=== PATIENT | male | born 1955 | race Caucasian/White ===

== ENCOUNTER 2018-06-12 11:30 | Outpatient (CLI) | payer BC ==
[2018-06-12 12:32] LABS: Mean Corpuscular HGB CONC 33.1 g/dL (32.0-36.0); Mean Corpuscular Hemoglobin 29.6 pg (27.0-31.0); Mean Corpuscular Volume 89.4 fL (78.0-98.0); Mean Platelet Volume 7.2 fL (7.4-10.4); Platelet Count 211 thou/uL (130-400); RBC Distribution Width 12.4 % (11.5-14.5); Red Blood Cell (RBC) Count 5.08 mill/uL (4.70-6.10); White Blood Cell (WBC) Count 8.1 thou/uL (4.8-10.8)
[2018-06-12 12:38] LABS: PTT 25.8 SEC (22.9-36.1)
[2018-06-12 12:50] LABS: INR-International Normal Ratio 1.1; Prothrombin Time 13.9 SEC (12.0-14.7)
[2018-06-12 12:57] LABS: Anion Gap 11 mmol/L (10-20); BUN (Urea Nitrogen) 17 mg/dL (8.4-25.7); Calc. Creatinine Clearance 0 mL/min (70-130); Calcium 9.5 mg/dL (7.8-10.44); Carbon Dioxide 27 mmol/L (23-31); Chloride 107 mmol/L (98-107); Estimated GFR-MDRD Greater than 90; Glucose 93 mg/dL (80-115); Potassium 4.1 mmol/L (3.5-5.1); Sodium 141 mmol/L (136-145)
--- NOTE | 2018-06-12 14:18 | RAD ---
CHEST FRONTAL AND LATERAL IMAGIN06/12/2018 HISTORY: Preoperative patient. COMPARISON: None. FINDINGS: Incompletely imaged cervical spine fusion hardware noted anteriorly within the lower cervical spine. There is no pneumothorax, pleural fluid, lobar consolidation, or alveolar edema. There is a small, nodular density overlying the mid right lung zone, measuring in the 8 mm range. Th is likely represents a nipple shadow. This could be confirmed with follow-up imaging with nipple mar kers. IMPRESSION: Round, nodular density in the mid right hemithorax, as detailed above. POS: [facility]
== END 2018-06-12 11:31 | disposition home or self-care (01) ==
LOC: LABBT 11:30
PROVIDERS: ATTEND Thoracic Surgery (Cardiothoracic Vascular Surgery)
DX: Z01.818 Encounter for other preprocedural examination (principal); I25.10 Atherosclerotic heart disease of native coronary artery without angina pectoris
CPT/HCPCS: 71046; 80048; 85027; 85610; 85730

== ENCOUNTER 2018-06-13 05:52 | Inpatient (IN) | payer BC ==
[2018-06-13] MEDS ORDERED: Dexamethasone 4 mg/ml Vial ONE (06:29)
[2018-06-13] MEDS ORDERED: Bupivacaine HCl 0.5%/Epinephrine 1:200,000/PF 30 ml Vial ONE (06:31)
[2018-06-13] MEDS ORDERED: Albumin 5% 500 ML ONE (06:48)
[2018-06-13] MEDS ORDERED: Midazolam HCl 5 mg/5 ml Vial ONE (07:00)
[2018-06-13] MEDS ORDERED: Fentanyl 250 MCG/5 ML VIAL ONE ×2 (07:00)
[2018-06-13] MEDS ORDERED: Midazolam HCl 2 mg/2 ml Vial ONE (07:18)
[2018-06-13] MEDS ORDERED: Heparin 10,000 UNITS/1 ML VIAL 30,000 UNITS in Sodium Chloride 0.9% 1,000 ML FS SCH (08:15)
[2018-06-13] MEDS ORDERED: PHENYLEPHRINE-NS 100 MCG/ML 10 ML SYRINGE ONE (12:09)
[2018-06-13] MEDS ORDERED: Fentanyl 100 MCG/2 ML VIAL SLOW IVP PRN ×2 (12:22)
[2018-06-13] MEDS ORDERED: Morphine 4 MG/ML VIAL SLOW IVP PRN (12:22)
[2018-06-13] MEDS ORDERED: Bisacodyl 10 MG SUPP PR PRN (12:22)
[2018-06-13] MEDS ORDERED: Potassium Chloride 20 MEQ/100 ML PREMIX BAG IVPB PRN (12:22)
[2018-06-13] MEDS ORDERED: Hetastarch 6% 500 ML 500 ML IVPB PRN (12:22)
[2018-06-13] MEDS ORDERED: Mag-Al 1200 mg/1200 mg/30 ML UDCUP PO PRN (12:22)
[2018-06-13] MEDS ORDERED: Bisacodyl 5 MG TAB PO PRN (12:22)
[2018-06-13] MEDS ORDERED: Guaifenesin DM 100-10/5 ML UDCUP PO PRN (12:22)
[2018-06-13] MEDS ORDERED: Acetaminophen 325 MG TAB PO PRN (12:22)
[2018-06-13] MEDS ORDERED: Ondansetron PF 4 MG/2 ML Vial IVP PRN (12:22)
[2018-06-13] MEDS ORDERED: Nitroglycerin 50 MG/250 ML BOT 250 ML IVPB PRN (12:22)
[2018-06-13] MEDS ORDERED: hydrALAZINE 20 MG/ML VIAL SLOW IVP PRN (12:22)
[2018-06-13] MEDS ORDERED: Promethazine HCl 25 MG/ML VIAL IM PRN (12:22)
[2018-06-13] MEDS ORDERED: Magnesium 2 GM/50 ML 2 GM in Premix Bag 1 BAG IVPB SCH (12:30)
--- NOTE | 2018-06-13 12:55 | OP ---
DATE OF PROCEDURE: 06/13/2018 PREOPERATIVE DIAGNOSES: Coronary artery disease/hypothyroidism/depressed left ventricular ejection fraction. POSTOPERATIVE DIAGNOSES: Coronary artery disease/hypothyroidism/depressed left ventricular ejection fraction. PROCEDURES PERFORMED: Coronary artery bypass grafting x4; 1. Left internal mammary artery to 1.5 mm left anterior descending-good conduit and target. 2. Reverse saphenous vein to 1.0 mm D1-good conduit and small target. 3. Reverse saphenous vein to 1.5 mm OM-good conduit and target. 4. Reverse saphenous vein to 1.5 mm PDA-dilated conduit with good target. NOTE - He has no further viable conduit. Redo should not be attempted CO-SURGEON: Dr. Benny Florez and Dr. Cordell Hobson. ANESTHESIA: General endotracheal - Dr. Delmy Pearce. PUMP TIME: 69 minutes. CROSS-CLAMP TIME: 39 minutes. LOW CORE TEMPERATURE: 34 degrees Celsius. PLASTER PATTERN CASTER: Hank Sharif DRAINS: 24-Macedonian chest tube x2. DRIPS: None. TRANSFUSIONS: None. DESCRIPTION OF PROCEDURE: After consent was obtained, the patient was brought to the operating room, placed in supine position on the operating room table. Appropriate central line was placed and general endotracheal anesthesia was induced. Chest and legs were prepped and draped in usual sterile fashion. Greater saphenous vein was harvested from the left lower extremity for the full length of the leg utilizing endoscopic technique. Most this vein was too small and thin-walled to use. There was approximately one segment, which was viable for bypass. It was proximal. The right thigh vein was then harvested through three skip incisions. This vein was also dilated and thin-walled. The veins were prepared for bypass. Median sternotomy was performed. Left internal mammary artery was harvested as a pedicle graft. The patient was systemically heparinized. Distal pedicle was divided and infused with papaverine. Thymic fat and pericardium were divided with electrocautery. Pericardial stay sutures were placed. Aortic and atrial cannulation were performed. After adequate heparinization, retrograde prime was performed, and the patient was placed on cardiopulmonary bypass. Distal targets were marked. Aortic cross-clamp was applied, and antegrade sanguineous cardioplegic arrest was obtained. 1 L of antegrade [place] cold cardioplegia was given. Topical cold solution was used. Reverse saphenous vein was anastomosed to the PDA in an end-to-side fashion with running 7-0 Prolene suture. Anastomosis was tested and was hemostatic. Reverse saphenous vein was anastomosed the OM in an end-to- side fashion with running 7-0 Prolene suture. Anastomosis was tested and was hemostatic. Reverse saphenous vein was anastomosed to diagonal in an end-to-side fashion with running 7-0 Prolene suture, and the anastomosis was tested and was hemostatic. Mammary artery was brought through and then the pericardium was anastomosed to the distal LAD in an end-to-side fashion with running 7-0 Prolene suture. Anastomosis was tested and was hemostatic. Cross-clamp was removed, and partial occluding clamp placed. Saphenous vein to PDA and OM were anastomosed to puncture sites in the aorta. Saphenous vein to the diagonal was anastomosed to the sidewall of the OM graft. Partial occluding clamp was removed and graft de-aired. Anastomoses were inspected for hemostasis which was good. The patient was warmed and weaned from cardiopulmonary bypass. After resumption of sinus rhythm, good hemodynamics, temperature greater than 36.5, bypass was discontinued. Transfusion was given. Protamine was administered. Decannulation was performed and pursestring suture secured. Hemostasis was ensured throughout the mediastinum. Vancomycin paste was placed on the sternal edges. The sternum was very oozy. We spent a lot of time getting hemostasis in the periosteum and sternal marrow. After adequate hemostasis had been obtained, 24-Macedonian chest tubes were placed in mediastinum. The sternum was closed with #7 wire. The sternum was treated with platelet rich plasma and wires were twisted. Wounds were irrigated and treated with platelet poor plasma and closed in multiple layers. Needle, sponge , and instrument counts were all reported as correct at the end of the procedure. The presternal area was blocked with 0.5% Marcaine with epinephrine and Decadron. Job ID: [id number] [facility]
[2018-06-13 13:01] LABS: Hemoglobin 13.1 g/dL (14.0-18.0); Mean Corpuscular Hemoglobin 29.6 pg (27.0-31.0); Mean Corpuscular Volume 89.8 fL (78.0-98.0); Mean Platelet Volume 7.1 fL (7.4-10.4); Platelet Count 181 thou/uL (130-400); RBC Distribution Width 12.3 % (11.5-14.5); Red Blood Cell (RBC) Count 4.41 mill/uL (4.70-6.10); White Blood Cell (WBC) Count 25.8 thou/uL (4.8-10.8)
[2018-06-13] MEDS: D5 1/2 NS w/20 mEq KCL 1,000 ML IV SCH (13:01)
[2018-06-13] MEDS ORDERED: Lidocaine 2% PF 100 mg/5 ml Syringe ONE (13:02)
[2018-06-13] MEDS ORDERED: ePHEDrine 50 MG/ML VIAL ONE (13:02)
[2018-06-13] MEDS ORDERED: Papaverine 60 MG/2 ML VIAL ONE (13:02)
[2018-06-13] MEDS ORDERED: Sodium Bicarb 50 MEQ/50 ML VIAL ONE (13:02)
[2018-06-13] MEDS ORDERED: Heparin 5,000 UNITS/ML VIAL ONE (13:02)
[2018-06-13] MEDS ORDERED: Magnesium 5 GM/10 ML VIAL ONE (13:02)
[2018-06-13] MEDS ORDERED: Rocuronium Bromide 10 MG/ML (10ML VIAL) ONE (13:02)
[2018-06-13] MEDS ORDERED: Ondansetron PF 4 MG/2 ML Vial ONE (13:02)
[2018-06-13] MEDS ORDERED: Heparin 30,000 units/30 ml VIAL ONE (13:02)
[2018-06-13] MEDS ORDERED: Aminocaproic Acid 5 GM/20 ML VIAL ONE (13:02)
[2018-06-13] MEDS ORDERED: Cardioplegic Soln 1,000 ML BAG ONE (13:02)
[2018-06-13] MEDS ORDERED: Potassium Chloride 60 MEQ/30 ML VIAL ONE (13:02)
[2018-06-13] MEDS ORDERED: Glycopyrrolate 0.2 MG/ML 5 ML SYRINGE ONE (13:02)
[2018-06-13] MEDS ORDERED: PROPOFOL 200 MG/20 ML VIAL ONE (13:02)
[2018-06-13] MEDS ORDERED: Protamine Sulfate 50 MG/5 ML VIAL ONE (13:02)
[2018-06-13] MEDS ORDERED: Calcium Chloride 1 GM/10 ML Abboject SYRINGE ONE (13:02)
[2018-06-13] MEDS ORDERED: Thrombin 5000 UNITS/5 ML VIAL ONE (13:02)
[2018-06-13] MEDS ORDERED: Dexamethasone 20 MG/5 ML VIAL ONE (13:02)
[2018-06-13] MEDS ORDERED: Mannitol 12.5 GM/50 ML ONE (13:02)
[2018-06-13] MEDS ORDERED: Vecuronium 10 MG VIAL ONE (13:02)
[2018-06-13] MEDS: CEFAZOLIN 2 GM in Premix Bag 1 BAG IVPB SCH ×2 (13:02→21:35)
[2018-06-13 13:10] LABS: Actual Bicarbonate (HCO3a) 20.9 mEq/L (22-28); Base Excess (BEa) -6.3 mEq/L (-2.0 to +3.0); CO2 Tension 48.5 mmHg (35.0-45.0); Calcium, Ionized 1.05 mmol/L (1.12-1.30); Carboxyhemoglobin (COHb) 0.5 gm% (0.0-3.0); Hemoglobin (Hb) 12.4 g/dL (14.0-18.0); O2 Tension (PaO2) 119.9 mmHg (> 80.0); Potassium - ABG Lab 4.05 mmol/L (3.70-5.30)
[2018-06-13 13:15] LABS: INR-International Normal Ratio 1.4; Prothrombin Time 16.9 SEC (12.0-14.7)
[2018-06-13 13:18] LABS: ALV-art Gradient 104.675 (0-20); Puncture Site ALINE; pH, Arterial 7.25 (7.35-7.45)
[2018-06-13 13:20] LABS: Band 14 % (5-11); Eosinophils 1 % (0-10); Lymphocytes 18 % (21-51); MDiff Complete? YES; Monocytes 3 % (0-10); Myelocyte 1 % (0-0); Neutrophil 63 % (42-75); Platelet Morphology Comment Appears Adequate; RBC Morphology Normal
[2018-06-13 13:23] LABS: Anion Gap 12 mmol/L (10-20); BUN (Urea Nitrogen) 13 mg/dL (8.4-25.7); Calc. Creatinine Clearance 132 mL/min (70-130); Calcium 7.1 mg/dL (7.8-10.44); Carbon Dioxide 20 mmol/L (23-31); Chloride 113 mmol/L (98-107); Estimated GFR-MDRD Greater than 90; Glucose 151 mg/dL (80-115); Potassium 3.9 mmol/L (3.5-5.1); Sodium 141 mmol/L (136-145)
[2018-06-13] MEDS ORDERED: [UNRECOGNIZED DRUG - REMARK] IVPB SCH (13:30)
[2018-06-13] MEDS ORDERED: Sodium Bicarb 50 MEQ/50 ML VIAL IVP SCH (13:30)
[2018-06-13] MEDS ORDERED: Sodium Bicarb 50 MEQ/50 ML Abboject 8.4% SYRINGE IVP SCH (13:30)
[2018-06-13] MEDS ORDERED: Insulin Regular 300 UNITS/3 ML VIAL ONE (14:10)
[2018-06-13] MEDS ORDERED: Insulin Regular 300 UNITS/3 ML VIAL SC PRN (14:14)
[2018-06-13] MEDS ORDERED: HUMULIN R 100 UNITS in Sodium Chloride 0.9% 100 ML IVPB SCH (14:14)
[2018-06-13] MEDS ORDERED: Dextrose 5% in Water 1,000 ML IV PRN (14:14)
[2018-06-13] MEDS ORDERED: Dextrose 50% Abboject 50 ML SYRINGE SLOW IVP PRN (14:14)
--- NOTE | 2018-06-13 14:35 | RAD ---
SINGLE VIEW CHEST: Date: 06/13/18 COMPARISON: 06/12/18. HISTORY: Status post open heart surgery. FINDINGS: Single view of the chest shows normal sized cardiomediastinal silhouette. The patient is status post sternotomy. There is an endotracheal tube with its tip at the upper border of the clavicles. A right- sided central venous catheter is seen with its tip at the superior vena cava. There is no evidence of pneumothorax. There is no evidence of consolidation, mass, or pleural effusion. IMPRESSION: Appropriate position of lines and tubes status post sternotomy. POS: [facility]
[2018-06-13] MEDS: HEXTEND 6% LR 500ML 500 ML IVPB PRN ×2 (14:58→18:25)
--- NOTE | 2018-06-13 16:50 | CON ---
DATE OF CONSULTATION: 06/13/2018 REASON FOR CONSULTATION: Post CABG. PRIMARY PULP COOKER: Alex Parry MD. HISTORY OF PRESENT ILLNESS: Mr. Medina is a very pleasant 62-year-old white gentleman, who comes to the hospital for a planned coronary artery bypass grafting. He was originally seen on May 02 for chest pains. He underwent a nuclear stress test, which showed inferior abnormalities and a reduced LV function. Echocardiogram confirmed findings with an EF of 35% to 40% and grade 1 diastolic dysfunction. No major valvular abnormality was seen. He underwent heart catheterization, was found to have multivessel disease and referred to CT surgery. Dr. Abraham performed CABG x4 earlier today. From my evaluation, he is still intubated, but awake and following commands. He is off pressors. PAST MEDICAL HISTORY: 1. Hypothyroidism. 2. Varicose veins. FAMILY HISTORY: Mother with hypertension. Father with Alzheimer's dementia and history of an MN. Grandfather at 62 of an MN. Paternal grandfather at 92 from old age. Has a brother who is alive, had a bypass as well. OUTPATIENT MEDICATIONS: Synthroid 150 mcg p.o. daily. ALLERGIES: NO KNOWN DRUG ALLERGIES. SOCIAL HISTORY: No alcohol, no tobacco or drugs. REVIEW OF SYSTEMS: A 12-point review of systems was done and was all negative unless stated in the history of present illness. PHYSICAL EXAMINATION: VITAL SIGNS: Temperature 96.8, heart rate 88, respiratory rate 16, saturating 97% on 40% FiO2. Blood pressure 89/52, MAP of 65. GENERAL: Intubated, but easily arousable and following commands. HEENT: Normocephalic, atraumatic. LUNGS: Have coarse breath sounds bilaterally. CARDIOVASCULAR: S1 and S2. No S3 or S4. There is a two component rub consistent with the chest tubes and CABG. ABDOMEN: Soft. EXTREMITIES: Trace edema. SKIN: Warm and dry. LABORATORY DATA: Laboratory work was reviewed. White count of 25, hemoglobin of 13, hematocrit of 39, platelet count of 181. Coags were unremarkable. ABG was reviewed. Chemistries were reviewed. Chest x-ray was reviewed. ASSESSMENT AND PLAN: 1. Multivessel coronary artery disease. 2. Status post coronary artery bypass grafting x4 with a TAPIA to the LAD, a vein graft to a D1, a vein graft to an OM1 and a vein graft to PDA. 3. Hypothyroidism. PLAN: 1. Continue postoperative care. 2. Supportive care at this time. 3. Start PT once tolerated. 4. Aspirin and statin for life. 5. Once blood pressure starts to come up, CORTES inhibitor and beta ioana will be instituted. 6. We will follow. Job ID: [id number]
[2018-06-13] MEDS: Ketorolac Tromethamine 30 MG/ML VIAL IVP SCH (17:14)
[2018-06-13] MEDS: HYDROcodone/Acetaminophen 5/325 mg Tablet PO PRN ×2 (17:15→21:35)
[2018-06-13 18:55] LABS: Hemoglobin 9.6 g/dL (14.0-18.0)
[2018-06-13 19:07] LABS: Potassium 4.2 mmol/L (3.5-5.1)
[2018-06-13] MEDS: Norepinephrine 8 MG/0.9% NS 250 ML IVPB PRN (19:23)
[2018-06-13] MEDS: Famotidine/PF 20 mg/2ml Vial SLOW IVP SCH (21:35)
[2018-06-14] MEDS: Ketorolac Tromethamine 30 MG/ML VIAL IVP SCH ×4 (00:17→17:59)
[2018-06-14] MEDS: D5 1/2 NS w/20 mEq KCL 1,000 ML IV SCH (03:29)
[2018-06-14 03:44] LABS: #Monocytes 1.7 thou/uL (0.11-0.59); #Neutrophils 11.6 thou/uL (1.40-6.50); %Basophils 0.1 % (0.0-1.0); %Eosinophils 0.1 % (0.0-10.0); %Lymphocytes 6.8 % (21.0-51.0); Hemoglobin 9.7 g/dL (14.0-18.0); Mean Corpuscular HGB CONC 33.8 g/dL (32.0-36.0); Mean Corpuscular Hemoglobin 30.1 pg (27.0-31.0); Mean Platelet Volume 7.2 fL (7.4-10.4); Platelet Count 195 thou/uL (130-400); RBC Distribution Width 12.3 % (11.5-14.5); Red Blood Cell (RBC) Count 3.23 mill/uL (4.70-6.10); White Blood Cell (WBC) Count 14.4 thou/uL (4.8-10.8)
[2018-06-14 04:18] LABS: Anion Gap 9 mmol/L (10-20); BUN (Urea Nitrogen) 14 mg/dL (8.4-25.7); Calc. Creatinine Clearance 0 mL/min (70-130); Calcium 7.4 mg/dL (7.8-10.44); Carbon Dioxide 24 mmol/L (23-31); Chloride 111 mmol/L (98-107); Estimated GFR-MDRD Greater than 90; Glucose 145 mg/dL (80-115); Potassium 4.2 mmol/L (3.5-5.1); Sodium 140 mmol/L (136-145)
[2018-06-14] MEDS: HYDROcodone/Acetaminophen 5/325 mg Tablet PO PRN ×3 (04:30→20:45)
[2018-06-14] MEDS: Levothyroxine 150 MCG TAB PO SCH (06:33)
[2018-06-14] MEDS: CEFAZOLIN 2 GM in Premix Bag 1 BAG IVPB SCH (06:33)
[2018-06-14] MEDS: Magnesium 2 GM/50 ML 2 GM in Premix Bag 1 BAG IVPB SCH (08:31)
[2018-06-14] MEDS: Aspirin 325 MG TAB PO SCH (08:31)
[2018-06-14] MEDS: Famotidine/PF 20 mg/2ml Vial SLOW IVP SCH ×2 (08:31→20:45)
--- NOTE | 2018-06-14 09:44 | RAD ---
PORTABLE CHEST: DATE: 06/14/2018. PROVIDED CLINICAL HISTORY: Post open heart. FINDINGS: Comparison 06/13/2018. Interval development of more conspicuous basilar consolidation on the left wit h obscuration of the left hemidiaphragm. Interval removal of the endotracheal tube. Right subclavia n central line is again seen in similar position. The right lung appears clear. No pleural fluid ev ident. IMPRESSION: Development of left basilar pleural and/or parenchymal opacity. Followup is recommended. POS: [facility]
[2018-06-14] MEDS: Norepinephrine 8 MG/0.9% NS 250 ML IVPB PRN (16:37)
[2018-06-15] MEDS: Ketorolac Tromethamine 30 MG/ML VIAL IVP SCH ×4 (00:54→18:48)
[2018-06-15 05:31] LABS: #Lymphocytes 2.3 thou/uL (1.20-3.40); #Monocytes 1.3 thou/uL (0.11-0.59); #Neutrophils 7.3 thou/uL (1.40-6.50); %Basophils 0.4 % (0.0-1.0); %Eosinophils 0.4 % (0.0-10.0); %Lymphocytes 21.1 % (21.0-51.0); %Monocytes 11.4 % (0.0-10.0); %Neutrophils 66.7 % (42.0-75.0); Hemoglobin 8.9 g/dL (14.0-18.0); Mean Corpuscular HGB CONC 32.8 g/dL (32.0-36.0); Mean Corpuscular Volume 91.5 fL (78.0-98.0); Mean Platelet Volume 7.1 fL (7.4-10.4); Platelet Count 142 thou/uL (130-400); RBC Distribution Width 12.5 % (11.5-14.5); Red Blood Cell (RBC) Count 2.96 mill/uL (4.70-6.10)
[2018-06-15 05:53] LABS: Anion Gap 6 mmol/L (10-20); BUN (Urea Nitrogen) 16 mg/dL (8.4-25.7); Calc. Creatinine Clearance 150 mL/min (70-130); Calcium 7.7 mg/dL (7.8-10.44); Carbon Dioxide 28 mmol/L (23-31); Chloride 108 mmol/L (98-107); Estimated GFR-MDRD Greater than 90; Glucose 119 mg/dL (80-115); Potassium 4.4 mmol/L (3.5-5.1); Sodium 138 mmol/L (136-145)
[2018-06-15] MEDS: Levothyroxine 150 MCG TAB PO SCH (06:42)
[2018-06-15] MEDS: Aspirin 325 MG TAB PO SCH (08:52)
[2018-06-15] MEDS: Famotidine 20 MG TAB PO SCH ×2 (08:52→21:17)
[2018-06-15] MEDS: Magnesium 2 GM/50 ML 2 GM in Premix Bag 1 BAG IVPB SCH (08:52)
--- NOTE | 2018-06-15 09:59 | RAD ---
PORTABLE CHEST: DATE: 06/15/2018. PROVIDED CLINICAL HISTORY: Post open heart. FINDINGS: Comparison 06/14/2018. Significant interval change with respect to the prior examination is not appar ent. IMPRESSION: As above. POS: [facility]
[2018-06-15] MEDS: ALPRAZolam 0.25 MG TAB PO PRN ×2 (11:50→19:30)
[2018-06-15] MEDS: HYDROcodone/Acetaminophen 5/325 mg Tablet PO PRN (11:50)
[2018-06-16] MEDS: Ketorolac Tromethamine 30 MG/ML VIAL IVP SCH ×4 (00:10→18:47)
[2018-06-16] MEDS: Levothyroxine 150 MCG TAB PO SCH (06:23)
[2018-06-16 06:30] LABS: #Eosinphils 0.1 thou/uL (0.0-0.7); #Lymphocytes 1.7 thou/uL (1.20-3.40); #Monocytes 0.9 thou/uL (0.11-0.59); %Basophils 0.6 % (0.0-1.0); %Eosinophils 1.8 % (0.0-10.0); %Lymphocytes 21.7 % (21.0-51.0); %Monocytes 11.2 % (0.0-10.0); %Neutrophils 64.7 % (42.0-75.0); Hemoglobin 8.7 g/dL (14.0-18.0); Mean Corpuscular HGB CONC 32.5 g/dL (32.0-36.0); Mean Corpuscular Hemoglobin 29.9 pg (27.0-31.0); Mean Corpuscular Volume 91.8 fL (78.0-98.0); Mean Platelet Volume 7.1 fL (7.4-10.4); Platelet Count 137 thou/uL (130-400); RBC Distribution Width 12.5 % (11.5-14.5); White Blood Cell (WBC) Count 7.8 thou/uL (4.8-10.8)
[2018-06-16 06:36] VITALS: BMI 27.2
[2018-06-16 06:55] LABS: Anion Gap 9 mmol/L (10-20); BUN (Urea Nitrogen) 16 mg/dL (8.4-25.7); Calc. Creatinine Clearance 159 mL/min (70-130); Calcium 8.1 mg/dL (7.8-10.44); Carbon Dioxide 26 mmol/L (23-31); Chloride 109 mmol/L (98-107); Estimated GFR-MDRD Greater than 90; Glucose 99 mg/dL (80-115); Potassium 4.2 mmol/L (3.5-5.1); Sodium 140 mmol/L (136-145)
[2018-06-16] MEDS: HYDROcodone/Acetaminophen 5/325 mg Tablet PO PRN (10:10)
[2018-06-16] MEDS: Aspirin 325 MG TAB PO SCH (10:10)
[2018-06-16] MEDS: Famotidine 20 MG TAB PO SCH ×2 (10:10→20:03)
--- NOTE | 2018-06-16 14:15 | PDOC.CTH ---
Cardiology Progress Note - Subjective He is doing very well. No chest pain. Passing gas but no BM's. - Objective Vital Signs Temp Pulse Pulse BP BP Pulse Ox 06/16/18 13:33 92 88 100/60 92/59 L 06/16/18 12:00 97.8 F 06/16/18 10:55 92 84 110/65 102/60 06/16/18 08:00 98.6 F 96 06/16/18 04:00 98.7 F 06/16/18 02:27 97 Weight 201 lb 06/15/18 06/16/18 06/17/18 06:59 06:59 06:59 Intake Total 1970.6 1756 660 Output Total 2246 074 7520 Balance 649.6 1041 -750 - Physical Examination General/Neuro: alert & oriented x3, NAD Neck: no JVD present Lungs: CTA, unlabored respirations Heart: RRR Abdomen: NT/ND Extremities: + edema B (trace) - Telemetry Telemetry Rhythm: NSR - Labs Result Diagrams: 06/16/18 06:00 06/16/18 06:00 - Assessment/Plan 1. Multivessel CAD. 2. S/P CABG 3. Ischemic CM. 4. LV function at 35-40% prior to CABG PLAN: - Aspirin/statin for life. Will re start home dose of atorvastatin today. - BP still borderline low, cannot start ACEI or BB. - Increase PT as tolerted.
--- NOTE | 2018-06-16 17:37 | EKG ---
Test Reason : POST CABG Blood Pressure : / mmHG Vent. Rate : 091 BPM Atrial Rate : 091 BPM P-R Int : 174 ms QRS Dur : 098 ms QT Int : 394 ms P-R-T Axes : 050 -39 -27 degrees QTc Int : 484 ms Normal sinus rhythm Left axis deviation Inferior infarct , age undetermined Anterolateral infarct , age undetermined Abnormal ECG When compared with ECG of 02-JUN-1997 07:18, Significant changes have occurred Confirmed by DR. Meaghan LANIER ([id number]) on 06/16/2018 5:37:23 PM Referred By: Riana GARCIA Confirmed By:DR. Meaghan LANEIR
[2018-06-16] MEDS ORDERED: diphenhydrAMINE 25 MG CAP PO PRN (19:34)
[2018-06-16] MEDS ORDERED: Mineral Oil ENEMA PR PRN (19:34)
[2018-06-16] MEDS ORDERED: Guaifenesin DM 100-10/5 ML UDCUP PO PRN (19:34)
[2018-06-16] MEDS ORDERED: Milk Of Magnesia 30 ML UDCUP PO PRN (19:34)
[2018-06-16] MEDS ORDERED: Bisacodyl 10 MG SUPP PR PRN (19:34)
[2018-06-16] MEDS ORDERED: Mag-Al 1200 mg/1200 mg/30 ML UDCUP PO PRN (19:34)
[2018-06-16] MEDS ORDERED: Zolpidem Tartrate 5 MG TAB PO PRN (19:34)
[2018-06-16] MEDS ORDERED: Bisacodyl 5 MG TAB PO PRN (19:34)
[2018-06-16] MEDS ORDERED: Artificial Tears 18 DROP/0.9 ML EA EYE PRN (19:34)
[2018-06-16] MEDS ORDERED: Nitroglycerin 0.4 MG TAB (25 Tab Bottle) SL PRN (19:34)
[2018-06-16] MEDS ORDERED: Furosemide 20 MG TAB PO SCH (19:45)
[2018-06-16] MEDS ORDERED: Potassium Chloride 10 MEQ TAB PO SCH (19:45)
[2018-06-16] MEDS ORDERED: Aspirin 325 mg Enteric Coated Tablet PO SCH (19:45)
[2018-06-16] MEDS: Atorvastatin Calcium 10 MG TAB PO SCH (20:03)
[2018-06-16] MEDS ORDERED: Atorvastatin Calcium 10 MG TAB PO SCH (21:00)
[2018-06-17] MEDS: Levothyroxine 150 MCG TAB PO SCH (05:55)
[2018-06-17] MEDS ORDERED: Potassium Chloride 10 MEQ TAB PO SCH (08:00)
[2018-06-17] MEDS: Aspirin 325 mg Enteric Coated Tablet PO SCH (08:58)
[2018-06-17] MEDS: Famotidine 20 MG TAB PO SCH ×2 (08:59→20:46)
[2018-06-17] MEDS ORDERED: Metoprolol Tartrate 25 MG TAB PO SCH (09:00)
[2018-06-17] MEDS ORDERED: Furosemide 20 MG TAB PO SCH (09:00)
[2018-06-17] MEDS: HYDROcodone/Acetaminophen 5/325 mg Tablet PO PRN ×3 (09:25→22:19)
--- NOTE | 2018-06-17 19:41 | PDOC.CTH ---
Cardiology Progress Note - Subjective BP has been low today. Still very SOB with minimal exertion. Passing gas but no BM yet. - Objective Vital Signs Temp Pulse Pulse Pulse Resp BP BP 06/17/18 16:30 97.9 F 84 18 06/17/18 14:00 86 18 06/17/18 13:28 83 92 99/61 90/63 06/17/18 12:00 98 F 06/17/18 09:24 85 95 97/61 93/62 06/17/18 08:00 98.1 F BP Pulse Ox Pulse Ox Pulse Ox 06/17/18 16:30 96/58 L 95 06/17/18 14:00 88/51 L 94 L 06/17/18 13:28 06/17/18 12:00 06/17/18 09:24 95 93 L 06/17/18 08:00 96 Weight 3.397 oz 06/16/18 06/17/18 06/18/18 06:59 06:59 06:59 Intake Total 1756 1300 600 Output Total 715 3590 1670 Balance 1041 -2290 -1070 - Physical Examination General/Neuro: alert & oriented x3, NAD Neck: no JVD present Lungs: CTA, unlabored respirations Heart: RRR Abdomen: NT/ND Extremities: + edema B (Trace) - Telemetry Telemetry Rhythm: NSR - Labs Result Diagrams: 06/16/18 06:00 06/16/18 06:00 - Assessment/Plan 1. Multivessel CAD. 2. S/P CABG 3. Ischemic CM. 4. LV function at 35-40% prior to CABG PLAN: - Aspirin/statin for life. - BP still low, will stop BB and lasix today. - Increase PT as tolerated. - CXR.
--- NOTE | 2018-06-17 20:07 | RAD ---
CHEST TWO VIEWS 06/17/18 HISTORY: Dyspnea. COMPARISON: 06/15/18 FINDINGS: Cardiac silhouette is enlarged and partially obscured by left pleural fluid that is greater than on t he prior study. Atelectasis at the left base is also apparent. Minimal right pleural fluid. Mediastinum is midline with postoperative changes and a right subclavian central venous catheter. No evidence of pneumothorax. IMPRESSION: Moderate left and very small right pleural effusions. POS: [facility]
[2018-06-17] MEDS: Atorvastatin Calcium 10 MG TAB PO SCH (20:46)
[2018-06-18] MEDS: Levothyroxine 150 MCG TAB PO SCH (05:24)
[2018-06-18 06:40] LABS: #Eosinphils 0.3 thou/uL (0.0-0.7); #Lymphocytes 1.8 thou/uL (1.20-3.40); #Monocytes 0.8 thou/uL (0.11-0.59); #Neutrophils 4.2 thou/uL (1.40-6.50); %Basophils 0.6 % (0.0-1.0); %Eosinophils 4.2 % (0.0-10.0); %Lymphocytes 25.5 % (21.0-51.0); %Monocytes 10.6 % (0.0-10.0); %Neutrophils 59.2 % (42.0-75.0); Hemoglobin 8.4 g/dL (14.0-18.0); Mean Corpuscular HGB CONC 33.2 g/dL (32.0-36.0); Mean Corpuscular Hemoglobin 30.2 pg (27.0-31.0); Mean Corpuscular Volume 91.1 fL (78.0-98.0); Mean Platelet Volume 6.6 fL (7.4-10.4); Platelet Count 175 thou/uL (130-400); RBC Distribution Width 12.9 % (11.5-14.5); Red Blood Cell (RBC) Count 2.77 mill/uL (4.70-6.10); White Blood Cell (WBC) Count 7.1 thou/uL (4.8-10.8)
[2018-06-18 07:00] LABS: Anion Gap 10 mmol/L (10-20); BUN (Urea Nitrogen) 16 mg/dL (8.4-25.7); Calc. Creatinine Clearance 0 mL/min (70-130); Calcium 8.3 mg/dL (7.8-10.44); Carbon Dioxide 28 mmol/L (23-31); Chloride 108 mmol/L (98-107); Estimated GFR-MDRD Greater than 90; Glucose 97 mg/dL (80-115); Potassium 3.9 mmol/L (3.5-5.1); Sodium 142 mmol/L (136-145)
[2018-06-18] MEDS ORDERED: Furosemide 40 MG/4 ML VIAL SLOW IVP SCH (09:30)
[2018-06-18] MEDS: Famotidine 20 MG TAB PO SCH ×2 (10:44→20:37)
[2018-06-18] MEDS: Aspirin 325 mg Enteric Coated Tablet PO SCH (10:44)
[2018-06-18] MEDS: ALPRAZolam 0.25 MG TAB PO PRN (10:50)
--- NOTE | 2018-06-18 11:41 | PQF ---
CLINICAL DOCUMENTATION IMPROVEMENT CLARIFICATION FORM: ICD-10 Updated PLEASE DO AN ADDENDUM TO THE PROGRESS NOTE WITH ANY DOCUMENTATION UPDATES OR ADDITIONS AND CARRY THROUGH TO DC SUMMARY. THANK YOU. DATE: 06/18/2018; 06/19/2018 ATTN: Dr. Sheng Abraham Please exercise your independent, professional judgment in responding to the clarification form. Clinical indicators are provided on the bottom of this form for your review Please check appropriate box(s): [ ] Acute blood loss anemia [ ] Post-op anemia related to acute blood loss [ x ] Other diagnosis [ ] Unable to determine For continuity of documentation, please document condition throughout progress notes and discharge summary. Thank You. CLINICAL INDICATORS - SIGNS / SYMPTOMS/ LABS are present in the medical record: 06/13 06/14 06/18 LABS: Hemoglobin 13.1 9.7 8.4 Hematocrit 39.6 28.7 25.2 PN 06/17 (Brinda): BP has been low today. Still very SOB with minimal exertion. 8.7 26.6 RISKS: PN 06/16 (Brinda): Multivessel CAD. S/P CABG. Ischemic CM. LV function at 35-40% prior to CABG. TREATMENT: ORDER 06/18: Transfuse 2 Units PRBC each over 3 HR Administer Lasix 40 mg IVP between Units Thank you, Sharda (This form is maintained as a part of the permanent medical record) 2014 [employer]. All Rights Reserved Sharda Travis RN, BSN [email or web address] Office: [phone] [facility]
[2018-06-18] MEDS: HYDROcodone/Acetaminophen 5/325 mg Tablet PO PRN ×2 (14:57→20:30)
--- NOTE | 2018-06-18 19:02 | PDOC.CTH ---
Cardiology Progress Note - Subjective He was getting more hypotensive despite holding lasix and BB. His hgb was slowly decreasing. HE received a unit of blood earlier today and is already feeling better. He is getting a second dose and received lasix in between units. - Objective Vital Signs Temp Pulse Pulse Resp BP BP Pulse Ox 06/18/18 15:15 99.5 F 89 18 100/57 L 92 L 06/18/18 14:05 98.3 F 89 18 93 L 06/18/18 12:37 97.9 F 92 18 95/54 L 93 L 06/18/18 12:05 98.4 F 95 95 18 90/52 L 90/52 L 93 L 06/18/18 07:30 98.2 F 88 24 H 105/58 L 93 L Weight 3.397 oz 06/17/18 06/18/18 06/19/18 06:59 06:59 06:59 Intake Total 1300 1650 0 Output Total 3590 2345 Balance -2290 -695 0 - Physical Examination General/Neuro: alert & oriented x3, NAD Neck: no JVD present Lungs: unlabored respirations Heart: RRR Abdomen: NT/ND Extremities: + edema B (trace) - Telemetry Telemetry Rhythm: NSR - Labs Result Diagrams: 06/18/18 06:28 06/18/18 06:28 - Assessment/Plan 1. Multivessel CAD. 2. S/P CABG 3. Ischemic CM. 4. LV function at 35-40% prior to CABG PLAN: - Aspirin/statin for life. - Agree with transfusion. - Increase PT as tolerated. - Continue to monitor.
[2018-06-18] MEDS: Atorvastatin Calcium 10 MG TAB PO SCH (20:37)
[2018-06-19] MEDS: HYDROcodone/Acetaminophen 5/325 mg Tablet PO PRN ×2 (05:45→09:57)
[2018-06-19] MEDS: Levothyroxine 150 MCG TAB PO SCH (05:45)
[2018-06-19] MEDS: Famotidine 20 MG TAB PO SCH (09:57)
[2018-06-19] MEDS: Aspirin 325 mg Enteric Coated Tablet PO SCH (09:57)
--- NOTE | 2018-06-19 11:32 | DIS ---
DATE OF ADMISSION: 06/13/2018 DATE OF DISCHARGE: 06/19/2018 PRINCIPAL DIAGNOSIS: Coronary artery disease. PROCEDURES PERFORMED: Coronary artery bypass grafting x4 with left internal mammary artery to the left anterior descending and reverse greater saphenous vein graft from aorta to the first diagonal, the obtuse marginal, and the PDA. HISTORY OF PRESENT ILLNESS AND HOSPITAL COURSE: The patient is a 62-year-old man with inferior ischemia and reduced LV function on a nuclear stress testing that was done to evaluate chest discomfort. Echocardiography confirmed an EF in the 35% to 40% range and cardiac catheterization demonstrated multivessel disease. He underwent surgical revascularization because of the marginal quality of much of the saphenous vein harvested from the left lower extremity. Additional vein was harvested from the right lower extremity, which was of acceptable quality, but was somewhat dilated. Postoperatively, he had no major problems, but consistently ran blood pressures on the low side and although, they did not seem to be overtly symptomatic. The patient had frequent episodes of feeling poorly and was simply slow to get up and around. He was finally transfused for hemoglobin in the low to mid 8s, but even after that 2 units of blood transfusion, his systolic blood pressures were occasionally in the mid 80s, although they were mostly in the 100 to 110 range. He was feeling better the following day and was opted to go ahead and discharge him home. Beta-blockade and CORTES inhibitors are being withheld because of his marginal blood pressure. He is to resume his home dose of Synthroid 150 mcg a day, Lipitor 5 mg at bedtime, and an aspirin a day. A prescription for Cloudmach for pain control has been written. Job ID: [id number]
[2018-06-19 13:24] VITALS: TEMP 98.1
[2018-06-19 14:04] VITALS: BP 123/66
[2018-06-23 16:41] LABS: Actual Bicarbonate (HCO3a) 25.3 mEq/L (22-28); Analyzer IN Cardio OR; Base Excess (BEa) 0.1 mEq/L (-2.0 to +3.0); CO2 Tension 43.1 mmHg (35.0-45.0); Calcium, Ionized 1.14 mmol/L (1.12-1.30); Carboxyhemoglobin (COHb) 0.5 gm% (0.0-3.0); Hemoglobin (Hb) 13.5 g/dL (14.0-18.0); O2 Tension (PaO2) 426.4 mmHg (> 80.0); Potassium - ABG Lab 3.92 mmol/L (3.70-5.30); pH, Arterial 7.39 (7.35-7.45)
[2018-06-23 16:41] LABS: Actual Bicarbonate (HCO3a) 22.9 mEq/L (22-28); Analyzer IN Cardio OR; Base Excess (BEa) -2.1 mEq/L (-2.0 to +3.0); CO2 Tension 39.9 mmHg (35.0-45.0); Calcium, Ionized 1.09 mmol/L (1.12-1.30); Hemoglobin (Hb) 12.9 g/dL (14.0-18.0); O2 Tension (PaO2) 155.5 mmHg (> 80.0); Potassium - ABG Lab 4.18 mmol/L (3.70-5.30); pH, Arterial 7.38 (7.35-7.45)
[2018-06-23 16:42] LABS: Actual Bicarbonate (HCO3a) 20.9 mEq/L (22-28); Analyzer IN Cardio OR; Base Excess (BEa) -4.5 mEq/L (-2.0 to +3.0); CO2 Tension 39.6 mmHg (35.0-45.0); Calcium, Ionized 1.06 mmol/L (1.12-1.30); Carboxyhemoglobin (COHb) 0.6 gm% (0.0-3.0); Hemoglobin (Hb) 13.6 g/dL (14.0-18.0); O2 Tension (PaO2) 152.7 mmHg (> 80.0); pH, Arterial 7.34 (7.35-7.45)
[2018-06-23 16:43] LABS: Analyzer IN Cardio OR; Base Excess (BEa) -3.3 mEq/L (-2.0 to +3.0); CO2 Tension 34.9 mmHg (35.0-45.0); Calcium, Ionized 1.09 mmol/L (1.12-1.30); Carboxyhemoglobin (COHb) 0.3 gm% (0.0-3.0); Hemoglobin (Hb) 10.4 g/dL (14.0-18.0); Potassium - ABG Lab 4.36 mmol/L (3.70-5.30)
[2018-06-23 16:45] LABS: Actual Bicarbonate (HCO3v) 24 mEq/L (22-28); Analyzer IN Cardio OR; Base Excess -1.3 mEq/L (-2.0 to +3.0); Calcium, Ionized 0.95 mmol/L (1.16-1.32); Chloride (ABG LAB) 107 mmol/L (98-106); Hemoglobin (Hb) 10.4 g/dL (13.1-17.2); Sodium 133.3 mmol/L (133-146); pH (venous) 7.36 (7.32-7.43)
[2018-06-23 16:45] LABS: Actual Bicarbonate (HCO3a) 24.2 mEq/L (22-28); Analyzer IN Cardio OR; Base Excess (BEa) -0.5 mEq/L (-2.0 to +3.0); CO2 Tension 39.9 mmHg (35.0-45.0); Calcium, Ionized 1.02 mmol/L (1.12-1.30); Carboxyhemoglobin (COHb) 0.3 gm% (0.0-3.0); Hemoglobin (Hb) 10.9 g/dL (14.0-18.0); O2 Tension (PaO2) 493.6 mmHg (> 80.0); Potassium - ABG Lab 5.14 mmol/L (3.70-5.30)
[2018-06-23 16:45] LABS: Actual Bicarbonate (HCO3a) 25.2 mEq/L (22-28); Analyzer IN Cardio OR; Base Excess (BEa) -0.4 mEq/L (-2.0 to +3.0); Calcium, Ionized 0.98 mmol/L (1.12-1.30); Carboxyhemoglobin (COHb) 0.3 gm% (0.0-3.0); Hemoglobin (Hb) 9.8 g/dL (14.0-18.0); Potassium - ABG Lab 5.24 mmol/L (3.70-5.30); pH, Arterial 7.36 (7.35-7.45)
[2018-06-24 08:00] LABS: Puncture Site ALINE
[2018-06-24 08:01] LABS: Puncture Site ALINE
[2018-06-24 08:02] LABS: Puncture Site ALINE
[2018-06-24 08:02] LABS: Puncture Site ALINE
[2018-06-24 08:03] LABS: Puncture Site ALINE
[2018-06-24 08:03] LABS: Puncture Site ALINE
== END 2018-06-19 16:11 | disposition home or self-care (01) | DRG 236 ==
LOC: SURG A 05:52 → EDSTATUS 08:44 → CCU 09:32 → 2NO 06-17 14:27
PROVIDERS: ADMIT Thoracic Surgery (Cardiothoracic Vascular Surgery); ATTEND Thoracic Surgery (Cardiothoracic Vascular Surgery)
PROC: 021209W Bypass Coronary Artery, Three Arteries from Aorta with Autologous Venous Tissue, Open Approach (ICD-10-PCS; principal; 2018-06-13)
PROC: 02100Z9 Bypass Coronary Artery, One Artery from Left Internal Mammary, Open Approach (ICD-10-PCS; 2018-06-13)
PROC: 06BQ4ZZ Excision of Left Saphenous Vein, Percutaneous Endoscopic Approach (ICD-10-PCS; 2018-06-13)
PROC: 5A1221Z Performance of Cardiac Output, Continuous (ICD-10-PCS; 2018-06-13)
DX: I25.10 Atherosclerotic heart disease of native coronary artery without angina pectoris (principal); E03.9 Hypothyroidism, unspecified; I25.5 Ischemic cardiomyopathy; Z79.82 Long term (current) use of aspirin; Z82.49 Family history of ischemic heart disease and other diseases of the circulatory system
CPT/HCPCS: 36415; 36416; 36430; 71045; 71046; 80048; 82805; 85025; 85027; 85610; 85730; 86850; 86900; 86901; 93005; 93010; 93798; 94002; J0670; J1100; J1642; J1644; J1815; J1885; J1940; J2001; J2150; J2250; J2405; J2440; J2704; J2720; J3010; J3370; J3475; J3480; J3490; J7050; P9016; P9045; S0017; S0028

== ENCOUNTER 2018-12-16 07:53 | Day surgery (SDC) | payer BC ==
[2018-12-15 11:17] VITALS: BMI 26.2
[2018-12-16] MEDS ORDERED: Fentanyl 100 MCG/2 ML VIAL ONE (10:04)
--- NOTE | 2018-12-16 11:48 | OP ---
DATE OF PROCEDURE: 12/16/2018 PROCEDURES PERFORMED: Esophagogastroduodenoscopy with biopsy and colonoscopy, and polypectomy. PREOPERATIVE DIAGNOSES: 1. Epigastric discomfort after his bypass surgery, which has now markedly improved. 2. Colon cancer screening. POSTOPERATIVE DIAGNOSES: 1. Two diminutive sigmoid descending colon polyps removed by cold snare polypectomy and biopsy forceps respectively and submitted to Pathology. 2. Small hiatal hernia. 3. Mild gastritis, nonerosive, nonbleeding, biopsied. RECOMMENDATIONS: 1. He can use the H2 ioana or PPI p.r.n. for reflux. He had a normal CBC recently in my office as his epigastric pain has resolved. No further evaluations recommended. We will await biopsies. 2. With regard to these polyps, if these are adenomas, we will inform him that he needs to repeat an exam in 5 years. If they are hyperplastic all time, he can wait 10. ANESTHESIA: TIVA. DESCRIPTION OF PROCEDURE: The patient was informed of the risks, benefits, and possible complications of endoscopy including perforation, reaction to medication, and aspiration. Informed consent was obtained. The patient was brought to endoscopy suite, where he was sedated in gradual fashion. Once he was comfortable, bite block was placed inside the orifice. The endoscope was advanced through the esophagus, stomach, and the second and third portions of the duodenum, and slowly removed. The esophagus was normal, except for small hiatal hernia. The stomach was notable for mild erythema in the antrum with no evidence of erosions or ulcers. Retroflexed views in the stomach were normal, and the stomach had normal distensibility. The scope was advanced into the pyloric channel, which was normal. The duodenum was normal including the bulb and second and third portions. The scope was then slowly removed. Gastric biopsies were obtained for the gastritis and submitted to Pathology. Retroflexed views again were performed showing a small hiatal hernia, but no other lesions at the GE junction, and the scope was removed. The patient was turned to the room. A packed rectal examination was performed, which was normal. The endoscope was advanced to the anal canal through the colon to the cecum. The prep was good. The cecum was identified by the appendiceal orifice and the ileocecal valve. The endoscope was then slowly removed. There was good visualization. There were 2 small polyps less than 3 mm in the descending and sigmoid colon. One was removed with cold snare and the other with a biopsy forceps. Retroflexed views in the rectum were normal. The scope was removed. The patient tolerated procedure well. There were no complications. Job ID: [id number]
[2018-12-16] MEDS ORDERED: PROPOFOL 200 MG/20 ML VIAL ONE (22:10)
[2018-12-16] MEDS ORDERED: Glycopyrrolate 0.2 MG/ML 5 ML SYRINGE ONE (22:10)
[2018-12-16] MEDS ORDERED: ePHEDrine 50 MG/ML VIAL ONE (22:10)
[2018-12-16] MEDS ORDERED: PHENYLEPHRINE-NS 100 MCG/ML 10 ML SYRINGE ONE (22:10)
[2018-12-16] MEDS ORDERED: Lidocaine 1% PF 5 ML VIAL ONE (22:10)
== END 2018-12-16 11:45 | disposition home or self-care (01) ==
LOC: SDC 07:53
PROVIDERS: ATTEND Internal Medicine Gastroenterology
PROC: 0DBN8ZX Excision of Sigmoid Colon, Via Natural or Artificial Opening Endoscopic, Diagnostic (ICD-10-PCS; principal; 2018-12-16)
PROC: 0DBM8ZX Excision of Descending Colon, Via Natural or Artificial Opening Endoscopic, Diagnostic (ICD-10-PCS; principal; 2018-12-16)
PROC: 0DB68ZX Excision of Stomach, Via Natural or Artificial Opening Endoscopic, Diagnostic (ICD-10-PCS; principal; 2018-12-16)
DX: Z12.11 Encounter for screening for malignant neoplasm of colon (principal); D12.4 Benign neoplasm of descending colon; K31.89 Other diseases of stomach and duodenum; K44.9 Diaphragmatic hernia without obstruction or gangrene; Z79.82 Long term (current) use of aspirin; Z79.899 Other long term (current) drug therapy; Z98.84 Bariatric surgery status; Z95.1 Presence of aortocoronary bypass graft; Z95.810 Presence of automatic (implantable) cardiac defibrillator
CPT/HCPCS: 88305; 88312; J2001; J2704; J3010; J3490